=== PATIENT | female | born 1960 | race Caucasian/White ===

== ENCOUNTER 2018-04-27 06:12 | Day surgery (SDC) | payer OTHER, SELFPAY ==
--- NOTE | 2018-04-27 | COLBX_PTH ---
PATIENT: LADY HAQ LOC: EN U#:[id number] AGE/SX: 57/F ROOM: RE04/27/[address]: Dr. Segun Carrasco MD : [id number] BED: DIS: 04/27/2018 SPEC #: [id number] RECD: 04/27/18 13:19 STATUS: JONH LUZ ELENA #: [id number] KERA: 04/27/18 00:[address]: Segun Carrasco DEPT: SURGICAL PATHOLOGY RECD BY: Kristian Holly ENTERED: 04/27/18 13:19 SP TYPE: COLON BX OTHR DR: Dr. Americo Vazquez, DO Tissues: A - Sigmoid colon biopsy B - Rectum, NOS Procedures: Surgery Specimen Level IV HEADER OPERATION: Colonoscopy with biopsy PRE-OP DIAGNOSIS: Screening TISSUE SUBMITTED: A ? Biopsy sessile polyps distal sigmoid, B ? Biopsy polyp rectum MICROSCOPIC DIAGNOSIS A. Sessile polyps distal sigmoid, biopsy: Fragments of hyperplastic polyp. B. Polyp rectum, biopsy: Fragments of colonic mucosa with focal hyperplastic changes. QUENTIN:jian 04/28/18 MICROSCOPIC DESCRIPTION Slides are reviewed. GROSS DESCRIPTION A - Received in fixative is one container labeled with the patient's name and designated biopsy polyps sessile distal sigmoid. The specimen consists of multiple irregular fragments of light salazar soft tissue that in aggregate measure 0.7 x 0.7 x 0.1 cm. The specimen is totally submitted in one cassette. B - Received in fixative is one container labeled with the patient's name and designated rectal polyps. The specimen consists of two irregular fragments of salazar soft tissue that in aggregate measure 0.7 x 0.4 x 0.1 cm. The specimen is totally submitted in one cassette. / QUENTIN:jian 04/27/18 TC:1 CPT: 70032 x2
--- NOTE | 2018-04-27 06:12 | DT_ITS ---
This patient was seen during an EMR downtime April 20, 2018 - April 27, 2018. This patient may have a combination of paper and electronic documentation or all paper documentation. All documentation is viewable within the e-chart portion of [employer] for each patient visit.
== END 2018-04-27 08:22 | disposition home or self-care (01) ==
LOC: EN 06:13
PROVIDERS: Family Provider Family Medicine; PCP Family Medicine; Visit Provider Surgery
PROC: 0DJD8ZZ Inspection of Lower Intestinal Tract, Via Natural or Artificial Opening Endoscopic (ICD-10-PCS; CPT 45378; principal; 2018-04-27 07:10)
DX: Z12.11 Encounter for screening for malignant neoplasm of colon (principal); K63.5 Polyp of colon; I10 Essential (primary) hypertension; Z87.891 Personal history of nicotine dependence; K62.1 Rectal polyp
CPT/HCPCS: 45380; 88305; 99152; 99153; J7120

== ENCOUNTER → 2020-05-08 11:23 | Outpatient (CLI) | payer OTHER, SELFPAY ==
[2020-05-08 09:32] VITALS: BMI 43.7
[2020-05-08 11:38] LABS: Absolute Lymphocyte Count 1.83 X10^3/uL (0.83-4.51); Absolute Neutrophil Count 5.6 X10^3/uL (2.0-7.7); Basophil# 0.06 X10^3/uL; Basophil% 0.7 % (0-1); Eosinophil# 0.44 X10^3/uL; Hematocrit 46.8 % (37-47); Hemoglobin 14.9 g/dL (12.0-15.0); Lymphocyte # 1.83 X10^3/ul (4.0); Lymphocyte % 20.7 % (19-41); Mean Corp Hgb Conc 31.8 g/dL (32-36); Mean Corpuscular Hgb 28.9 pg (27.0-32.0); Mean Corpuscular Volume 90.7 fL (81-99); Mean Platelet Vol. 9.3 fl (6.2-12.0); Monocyte# 0.86 X10^3/uL; Monocyte% 9.7 % (0-10); NRBC Flagged by Analyzer 0 % (0-5); Neutrophil % 63.4 % (47-70); Platelet Count 275 K/mm3 (150-450); RBC Distribution Width CV 14.2 % (11.6-14.6); RBC Distribution Width SD 47.2 fl (35.1-43.9); Red Blood Count 5.16 M/mm3 (4.2-5.4); White Blood Count 8.8 K/mm3 (4.4-11.0)
[2020-05-11 16:08] LABS: Alternaria alternata <0.10 kU/L (Class 0); Bermuda Grass <0.10 kU/L (Class 0); Bluegrass, Kentucky <0.10 kU/L (Class 0); Cat Hair/Dander, Standard <0.10 kU/L (Class 0); D farinae Mite 0.33 kU/L (Class I); D pteronyssinus 0.33 kU/L (Class I); Dog Epithelia <0.10 kU/L (Class 0); Elm, American White <0.10 kU/L (Class 0); Oak, White <0.10 kU/L (Class 0); Plantain, English <0.10 kU/L (Class 0); Ragweed, Short/Common <0.10 kU/L (Class 0)
[2020-05-12 00:41] LABS: Mouse Urine <0.10 kU/L (Class 0)
[2020-05-12 03:06] LABS: Aspirgillus flavus Negative (Neg:<1:1); Aspirgillus fumigatus Negative (Neg:<1:1); Aspirgillus niger Negative (Neg:<1:1)
[2020-05-12 04:12] LABS: Immunoglobulin E 9 IU/mL (6-495)
== END ==
PROVIDERS: PCP Family Medicine; Referring Provider Nurse Practitioner Acute Care; Visit Provider Nurse Practitioner Acute Care
DX: R05 Cough (principal)
CPT/HCPCS: 36415; 82785; 85025; 86003; 86606

== ENCOUNTER → 2021-10-25 13:04 | Outpatient (CLI) | payer OTHER, SELFPAY | PROVIDERS: PCP Family Medicine; Visit Provider Family Medicine | DX: Z23 Encounter for immunization (principal) ==

== ENCOUNTER 2022-02-22 14:28 | Outpatient (CLI) | payer BC, SELFPAY ==
--- NOTE | 2022-02-22 14:43 | VDLE_ITS ---
Reason For Study: Pain in right leg RIGHT GSV is normal. CFV is compressible, spontaneous, phasic, competent and demonstrates normal augmentation. FV is compressible, spontaneous, phasic, competent and demonstrates normal augmentation. POP V is compressible, spontaneous, phasic, competent and demonstrates normal augmentation. T/P Trunk is compressible. PTV is compressible. RT PerV is compressible. Procedure This is a venous duplex using B-mode, color flow and spectral Doppler. Exam performed in department. A preliminary report was called and/or faxed to [facility]. VL/Venous Duplex US, Unilateral Interpretation Summary Deep veins of the right lower extremity are patent and compressible segmentally . There is no evidence of right lower extremity deep vein thrombosis. Valvular competence joaquina ears intact within the proximal deep venous system on the right . The right great saphenous vein a ppears patent and compressible segmentally. Ordering Physician: Americo Vazquez Referring Physician: Americo Vazquez Performed By: Marcela Cortes RVT
== END 2022-02-22 23:59 | disposition home or self-care (01) ==
LOC: CVS 14:29
PROVIDERS: PCP Family Medicine; Referring Provider Family Medicine; Visit Provider Family Medicine
DX: M79.604 Pain in right leg (principal); Z82.49 Family history of ischemic heart disease and other diseases of the circulatory system
CPT/HCPCS: 93971

== ENCOUNTER → 2022-04-29 | Outpatient (CLI) | payer BC, SELFPAY ==
--- NOTE | 2022-04-29 16:51 | RAD_ITS ---
STUDY: XR Knee Complete 4 Views or More 04/29/2022 5:42 PM REASON FOR EXAM: Female, 61 years old. KNEE PAIN TECHNIQUE: XR Knee Complete 4 Views or More LEFT COMPARISON: None FINDINGS: Normal visualized distal femur. Normal visualized proximal tibia and fibula. Normal proximal tibiofibular articulation. Normal medial femorotibial compartment. Normal lateral femorotibial compartment. Normal patellofemoral articulation. There is a soft tissue prominence in the suprapatellar region suggesting a small volume joint effusion. The soft tissue structures are unremarkable. RAD/Knee 4 or More Views IMPRESSION: Effusion, as described above. Electronically Signed: Armand Turner MD at 17:43 EDT ,
--- NOTE | 2022-04-29 16:51 | RAD_ITS ---
STUDY: XR Knee Complete 4 Views or More 04/29/2022 5:44 PM REASON FOR EXAM: Female, 61 years old. KNEE PAIN TECHNIQUE: XR Knee Complete 4 Views or More RIGHT COMPARISON: None FINDINGS: Normal visualized distal femur. Normal visualized proximal tibia and fibula. Normal proximal tibiofibular articulation. Normal medial femorotibial compartment. Normal lateral femorotibial compartment. Normal patellofemoral articulation. There is a soft tissue prominence in the suprapatellar region suggesting a small volume joint effusion. The soft tissue structures are unremarkable. RAD/Knee 4 or More Views IMPRESSION: Effusion, as described above. Electronically Signed: Armand Turner MD at 17:44 EDT ,
== END | disposition home or self-care (01) ==
LOC: RAD 16:34
PROVIDERS: PCP Family Medicine; Visit Provider Family Medicine
DX: M25.561 Pain in right knee (principal); M25.562 Pain in left knee
CPT/HCPCS: 73564

== ENCOUNTER → 2022-08-15 | Outpatient (CLI) | payer BC, SELFPAY ==
--- NOTE | 2022-08-15 11:56 | EKG12_ITS ---
Test Reason : PRE-OP Blood Pressure : / mmHG Vent. Rate : 071 BPM Atrial Rate : 071 BPM P-R Int : 178 ms QRS Dur : 072 ms QT Int : 392 ms P-R-T Axes : 007 105 054 degrees QTc Int : 425 ms Normal sinus rhythm Low voltage QRS Borderline ECG Confirmed by ANDRY DENNY, TERENCE ([id number]), supervising editor news reel SUSANNAH MOYA ([id number]) on 08/16/2022 10:08:29 A M Referred By: Babatunde Mitchell Confirmed By:JULITO WILDE MD
--- NOTE | 2022-08-15 12:00 | RAD_ITS ---
STUDY: X-RAY CHEST REASON FOR EXAM: Female, 61 years old. Preop. TECHNIQUE: PA and lateral COMPARISON: 09/11/2015 CXR FINDINGS: LUNGS: No evidence of pneumonia, pulmonary edema, pneumothorax or pleural effusion. MEDIASTINUM, KIM: Cardiac silhouette, hilar and mediastinal contours with no acute findings. Heart size normal. Atherosclerosis and tortuosity of the thoracic aorta. BONES: Degenerative osseous changes with no acute osseous abnormality. UPPER ABDOMEN: No apparent free intraperitoneal air. RAD/Chest PA and Lateral IMPRESSION: No acute findings. Electronically Signed: Bill Engel MD at 1:03 EDT ,
[2022-08-15 13:10] LABS: Hematocrit 44.8 % (37-47); Hemoglobin 15.1 g/dL (12.0-15.0); Mean Corp Hgb Conc 33.7 g/dL (32-36); Mean Corpuscular Hgb 29.2 pg (27.0-32.0); Mean Corpuscular Volume 86.7 fL (81-99); Platelet Count 296 K/mm3 (150-450); RBC Distribution Width SD 44.8 fl (35.1-43.9); Red Blood Count 5.17 M/mm3 (4.2-5.4); White Blood Count 11.1 K/mm3 (4.4-11.0)
[2022-08-15 13:33] LABS: Anion Gap 6 (5-15); BUN 15 mg/dL (7-18); BUN/Creat Ratio 22.3 RATIO (10-20); Calcium,Total 9.9 mg/dL (8.5-10.1); Chloride 103 mmol/L (98-107); Creatinine, Serum 0.67 mg/dL (0.55-1.02); EST Glomerular Filtration Rate 94 mL/min (>60); Est Glom Filt Rate - Afr Amer 114 mL/min (>60); Glucose 98 mg/dL (74-106); Sodium Level 140 mmol/L (136-145)
[2022-08-15 13:40] LABS: Hemoglobin A1c 6.1 % (3.8-5.6)
== END | disposition home or self-care (01) ==
LOC: PSN 11:53
PROVIDERS: PCP Family Medicine; Referring Provider Orthopaedic Surgery; Visit Provider Orthopaedic Surgery
DX: Z01.810 Encounter for preprocedural cardiovascular examination (principal); I10 Essential (primary) hypertension
CPT/HCPCS: 36415; 71046; 80048; 83036; 85027; 93005

== ENCOUNTER → 2023-09-26 | Outpatient (CLI) | payer BC, SELFPAY ==
[2023-09-26 12:41] LABS: Absolute Lymphocyte Count 1.78 X10^3/uL (0.83-4.51); Absolute Neutrophil Count 5.4 X10^3/uL (2.0-7.7); Basophil# 0.07 X10^3/uL; Basophil% 0.8 % (0-1); Eosinophil# 0.56 X10^3/uL; Eosinophils% 6.6 % (0-5); Hematocrit 46.8 % (37-47); Hemoglobin 14.5 g/dL (12.0-15.0); Lymphocyte # 1.78 X10^3/ul (0.83-4.51); Lymphocyte % 20.9 % (19-41); Mean Corpuscular Hgb 28.7 pg (27.0-32.0); Mean Corpuscular Volume 92.5 fL (81-99); Mean Platelet Vol. 9.7 fl (6.2-12.0); Monocyte# 0.68 X10^3/uL; NRBC Flagged by Analyzer 0 % (0-5); Neutrophil # 5.38 X10^3/uL (2.7-7.7); Neutrophil % 63.3 % (47-70); Platelet Count 275 K/mm3 (150-450); RBC Distribution Width CV 13.6 % (11.6-14.6); RBC Distribution Width SD 46.6 fl (35.1-43.9); Red Blood Count 5.06 M/mm3 (4.2-5.4); White Blood Count 8.5 K/mm3 (4.4-11.0)
[2023-09-26 12:58] LABS: AST(SGOT) 24 U/L (15-37); Alanine Aminotransfer ALT/SGPT 33 U/L (13-56); Albumin, Serum 3.8 g/dL (3.2-5.0); Alkaline Phosphatase 75 U/L (45-117); Anion Gap 5 (5-15); BUN 14 mg/dL (7-18); BUN/Creat Ratio 17.9 RATIO (10-20); Calcium,Total 8.9 mg/dL (8.5-10.1); Chloride 106 mmol/L (98-107); Cholesterol 185 mg/dL (200); Creatinine, Serum 0.78 mg/dL (0.55-1.02); EST Glomerular Filtration Rate 79 mL/min (>60); Est Glom Filt Rate - Afr Amer 96 mL/min (>60); Globulin 3.9 g/dL (2.2-4.2); Glucose 122 mg/dL (74-106); High Density Lipoprotein 48 mg/dL; Protein, Total 7.7 g/dL (6.4-8.2); Sodium Level 139 mmol/L (136-145); Thyroid Stim Hormone (TSH) 1.25 uIU/mL (0.358-3.74); Triglycerides 138 mg/dL; Very Low Density Lipoprotein 28 mg/dL (5-40)
[2023-09-26 13:21] LABS: Microalbumin,Random Urine 32.8 mg/L (NO RANGE EST.); Microalbumin:Creatinine Ratio 21.2 mg/g CRE (<30 mg/g CRE)
[2023-09-26 13:41] LABS: Hemoglobin A1c 5.9 % (3.8-5.6)
== END | disposition home or self-care (01) ==
PROVIDERS: PCP Family Medicine; Referring Provider Family Medicine; Visit Provider Family Medicine
DX: Z00.00 Encounter for general adult medical examination without abnormal findings (principal); E11.9 Type 2 diabetes mellitus without complications
CPT/HCPCS: 36415; 80053; 80061; 82043; 82570; 83036; 84443; 85025

== ENCOUNTER → 2024-10-11 | Outpatient (CLI) | payer BC, SELFPAY | END | disposition home or self-care (01) | LOC: BFHLAB 10:58 | PROVIDERS: PCP Family Medicine; Referring Provider Family Medicine; Visit Provider Family Medicine | DX: J02.9 Acute pharyngitis, unspecified (principal) | CPT/HCPCS: 87070 ==

== ENCOUNTER → 2024-12-28 | Outpatient (CLI) | payer BC, SELFPAY ==
[2024-12-28 15:03] LABS: Hemoglobin A1c 7.8 % (3.8-5.6)
== END | disposition home or self-care (01) ==
LOC: BFHLAB 08:05
PROVIDERS: PCP Family Medicine; Visit Provider Family Medicine
DX: E11.3399 Type 2 diabetes mellitus with moderate nonproliferative diabetic retinopathy without macular edema, unspecified eye (principal)
CPT/HCPCS: 36415; 83036

== ENCOUNTER → 2025-02-24 | Outpatient (CLI) | payer BC, SELFPAY ==
[2025-02-24 12:49] LABS: Absolute Lymphocyte Count 2.04 X10^3/uL (0.83-4.51); Absolute Neutrophil Count 4.4 X10^3/uL (2.0-7.7); Basophil# 0.07 X10^3/uL; Basophil% 0.9 % (0-1); Eosinophil# 0.45 X10^3/uL; Eosinophils% 5.9 % (0-5); Hematocrit 45.1 % (37-47); Hemoglobin 14.6 g/dL (12.0-15.0); Lymphocyte # 2.04 X10^3/ul (0.83-4.51); Lymphocyte % 26.6 % (19-41); Mean Corp Hgb Conc 32.4 g/dL (32-36); Mean Corpuscular Hgb 29.1 pg (27.0-32.0); Mean Corpuscular Volume 89.8 fL (81-99); Mean Platelet Vol. 10.2 fl (6.2-12.0); Monocyte# 0.73 X10^3/uL; Monocyte% 9.5 % (0-10); NRBC Flagged by Analyzer 0 % (0-5); Neutrophil # 4.35 X10^3/uL (2.7-7.7); Neutrophil % 56.6 % (47-70); Platelet Count 263 K/mm3 (150-450); RBC Distribution Width CV 13.6 % (11.6-14.6); RBC Distribution Width SD 44.7 fl (35.1-43.9); Red Blood Count 5.02 M/mm3 (4.2-5.4); White Blood Count 7.7 K/mm3 (4.4-11.0)
[2025-02-24 13:19] LABS: Microalbumin,Random Urine 19.9 mg/L (NO RANGE EST.); Microalbumin:Creatinine Ratio 89.6 mg/g CRE
[2025-02-24 13:29] LABS: ALB/GLOB Ratio 1.3 RATIO (0.9-2.4); AST(SGOT) 46 U/L (<=31); Alanine Aminotransfer ALT/SGPT 46 U/L (<=34); Albumin, Serum 4.3 g/dL (3.4-4.8); Alkaline Phosphatase 75 U/L (35-104); Anion Gap 13 (5-15); BUN 17 mg/dL (4-19); BUN/Creat Ratio 21.5 RATIO (10-20); Calcium,Total 9.3 mg/dL (7.6-11.0); Carbon Dioxide 23.7 mmol/L (21.0-32.0); Chloride 105 mmol/L (98-108); Cholesterol 156 mg/dL (<=200); Creatinine, Serum 0.77 mg/dL (0.70-1.20); EST Glomerular Filtration Rate 86 (>60); Globulin 3.2 g/dL (2.2-4.2); Glucose 157 mg/dL (70-99); High Density Lipoprotein 44 mg/dL; Low Density Lipoprotein Calc. 94 mg/dL; Potassium 4.1 mmol/L (3.3-5.1); Protein, Total 7.4 g/dL (5.9-8.4); Sodium Level 141 mmol/L (133-145); Total Bilirubin 0.74 mg/dL (0.00-1.30); Triglycerides 94 mg/dL; Very Low Density Lipoprotein 19 mg/dL (5-40); cholesterol:hdl ratio screen 3.59
[2025-02-24 13:35] LABS: Hemoglobin A1c 8.1 % (<=5.6)
== END | disposition home or self-care (01) ==
LOC: BFHLAB 08:12
PROVIDERS: PCP Family Medicine; Visit Provider Family Medicine
DX: Z00.00 Encounter for general adult medical examination without abnormal findings (principal); E11.3399 Type 2 diabetes mellitus with moderate nonproliferative diabetic retinopathy without macular edema, unspecified eye
CPT/HCPCS: 36415; 80053; 80061; 82043; 82570; 83036; 84443; 85025

== ENCOUNTER → 2025-05-19 | Outpatient (CLI) | payer BC, SELFPAY ==
[2025-05-19 12:53] LABS: AST(SGOT) 32 U/L (<=31); Alanine Aminotransfer ALT/SGPT 39 U/L (<=34); Albumin, Serum 4.1 g/dL (3.4-4.8); Alkaline Phosphatase 70 U/L (35-104); Anion Gap 11 (5-15); BUN 12 mg/dL (4-19); BUN/Creat Ratio 17.5 RATIO (10-20); Calcium,Total 8.8 mg/dL (7.6-11.0); Carbon Dioxide 23.0 mmol/L (21.0-32.0); Chloride 108 mmol/L (98-108); Cholesterol 150 mg/dL (<=200); Globulin 3.0 g/dL (2.2-4.2); Glucose 115 mg/dL (70-99); Low Density Lipoprotein Calc. 87 mg/dL; Potassium 4.3 mmol/L (3.3-5.1); Triglycerides 120 mg/dL; Very Low Density Lipoprotein 24 mg/dL (5-40); cholesterol:hdl ratio screen 3.89
== END | disposition home or self-care (01) ==
PROVIDERS: PCP Family Medicine; Visit Provider Family Medicine
DX: E11.3399 Type 2 diabetes mellitus with moderate nonproliferative diabetic retinopathy without macular edema, unspecified eye (principal); I10 Essential (primary) hypertension; R74.8 Abnormal levels of other serum enzymes
CPT/HCPCS: 36415; 80053; 80061; 83036